=== PATIENT | male | born 1970 | race African-American/Black ===

== ENCOUNTER → 2019-08-09 | Outpatient (CLI) | payer MEDICAID ==
[~2019-08-09] MED LIST: ATORVASTATIN PO; LISINOPRIL PO; METF500T17 PO
[2019-08-09 16:01] LABS: BASOPHILS # (AUTO) 0.05 x10^3/uL (0-0.1); BASOPHILS % (AUTO) 0 % (0-1); EOSINOPHILS # (AUTO) 0.39 x10^3/uL (0-0.4); EOSINOPHILS % (AUTO) 4 % (1-7); LYMPHOCYTES # (AUTO) 2.85 x10^3/uL (1-3.4); LYMPHOCYTES % (AUTO) 26 % (22-44); MD NO; MEAN CORPUSCULAR HEMOGLOBIN 29.7 pg (27.5-34.5); MEAN CORPUSCULAR HGB CONC 33.4 g/dL (33.2-36.2); MEAN CORPUSCULAR VOLUME 88.8 fL (81-97); MEAN PLATELET VOLUME 7.8 fL (7.4-10.4); MONOCYTES # (AUTO) 0.93 x10^3/uL (0.2-0.8); MONOCYTES % (AUTO) 9 % (2-9); NEUTROPHILS # (AUTO) 6.73 x10^3/uL (1.8-6.8); NEUTROPHILS % (AUTO) 62 % (42-75); PLATELET COUNT 315 x10^3/uL (130-400); RED BLOOD COUNT 5.33 x10^6/uL (4.38-5.82); RED CELL DISTRIBUTION WIDTH 14.1 % (9.4-14.8)
[2019-08-09 16:11] LABS: ALANINE AMINOTRANSFERASE 34 U/L (12-78); ALBUMIN 3.4 g/dL (3.4-5.0); ANION GAP 6 mmol/L (5-15); CHLORIDE 106 mmol/L (98-107); CREATININE 1.02 mg/dL (0.7-1.3)
[2019-08-09 16:14] LABS: ALKALINE PHOSPHATASE 130 U/L (45-117); BILIRUBIN,TOTAL 0.2 mg/dL (0.2-1.0); TOTAL PROTEIN 8.1 g/dL (6.4-8.2)
[2019-08-09 16:25] LABS: INTERNATIONAL NORMALIZED RATIO 0.96 (0.93-1.1); PROTHROMBIN TIME 10.2 Seconds (9.6-11.5)
== END | disposition home or self-care (01) ==
LOC: STAR 14:48
PROVIDERS: ATTEND Orthopaedic Surgery
DX: Z01.818 Encounter for other preprocedural examination (principal); M17.11 Unilateral primary osteoarthritis, right knee; R94.31 Abnormal electrocardiogram [ECG] [EKG]
CPT/HCPCS: 36415; 80053; 83036; 85025; 85610; 85730; 87081; 87806; 93005; G0475

== ENCOUNTER 2019-08-13 10:29 | Observation (INO) | payer MEDICAID ==
[~2019-08-13] VITALS: Ht 190.5 cm; Wt 126.1 kg
[2019-08-13 10:59] VITALS: BP 119/83
[2019-08-13] MEDS ORDERED: GABAPENTIN 300 MG CAPSULE PO ONE (11:00)
[2019-08-13] MEDS ORDERED: ACETAMINOPHEN 500 MG TABLET PO ONE (11:00)
[2019-08-13] MEDS ORDERED: CHLORHEXIDINE 15 ML UDC MM ONE (11:00)
[2019-08-13] MEDS: LACTATED RINGERS 1,000 ML IV SCH ×2 (11:37→21:28)
[2019-08-13] MEDS ORDERED: FENTANYL PF 250 MCG/5ML ONE (13:37)
[2019-08-13] MEDS ORDERED: TRANEXAMIC ACID 100 MG/ML, 10ML ONE (13:48)
[2019-08-13] MEDS ORDERED: KETOROLAC 60 MG/2 ML ONE (13:48)
[2019-08-13] MEDS ORDERED: EPINEPHRINE 1 MG/ML, 1ML ONE (13:48)
[2019-08-13] MEDS ORDERED: ROPIvacaine/PF 0.2%, 20 ML ONE (13:48)
[2019-08-13] MEDS: POTASSIUM CHLORIDE 20 MEQ in D5%-0.45% NACL 1,000 ML IV SCH (13:54)
[2019-08-13] MEDS ORDERED: PROMETHAZINE 12.5 MG SUPP PR PRN ×2 (14:00→15:00)
[2019-08-13] MEDS ORDERED: HYDROmorphone 1 MG/ML, 1ML INJ IVPush PRN ×2 (14:00→15:00)
[2019-08-13] MEDS ORDERED: ONDANSETRON 2MG/ML, 2ML IVPush PRN ×2 (14:00→15:00)
[2019-08-13] MEDS ORDERED: ACETAMINOPHEN 650 MG/20.3 ML UDC PO PRN (14:00)
[2019-08-13] MEDS ORDERED: OXYcodone IR 5MG TABLET PO PRN (14:00)
[2019-08-13] MEDS ORDERED: PSYLLIUM PACKET PO PRN (14:00)
[2019-08-13] MEDS ORDERED: ALUMINUM/MAG/SIMETHICONE 30 ML UDC PO PRN (14:00)
[2019-08-13] MEDS ORDERED: SENNA/DOCUSATE TABLET PO PRN (14:00)
[2019-08-13] MEDS ORDERED: DEXAMETHASONE 4 MG/ML, 1ML IVPush SCH (14:00)
[2019-08-13] MEDS ORDERED: MAGNESIUM HYDROXIDE 8%, 30ML UDC PO PRN (14:00)
[2019-08-13] MEDS ORDERED: ONDANSETRON 4 MG TABLET PO PRN (14:00)
[2019-08-13] MEDS ORDERED: POLYETHYLENE GLYCOL 17 GM PACKET PO PRN (14:00)
[2019-08-13] MEDS ORDERED: TRANEXAMIC ACID 1,000 MG in SODIUM CHLORIDE 0.9% 100 ML IVPB ONE ×2 (14:00→16:30)
[2019-08-13] MEDS ORDERED: LIDOCAINE-MPF 2% ,5ML ONE (14:09)
[2019-08-13] MEDS ORDERED: PROPOFOL 10 MG/ML, 20ML ONE (14:39)
[2019-08-13] MEDS ORDERED: CEFAZOLIN 1,000 MG ONE (14:39)
[2019-08-13] MEDS ORDERED: DEXAMETHASONE 4 MG/ML, 1ML ONE (14:39)
[2019-08-13] MEDS ORDERED: ONDANSETRON 2MG/ML, 2ML ONE ×2 (14:39→16:04)
[2019-08-13] MEDS ORDERED: OXYcodone 5 MG/5 ML ORAL.SOL UDC PO PRN (15:00)
[2019-08-13] MEDS ORDERED: FENTANYL PF 100 MCG/2ML ONE ×2 (15:53→16:22)
[2019-08-13] MEDS ORDERED: OXYcodone 5 MG/5 ML ORAL.SOL UDC ONE (15:53)
[2019-08-13] MEDS ORDERED: MEPERIDINE/PF 50 MG/ML ONE (15:58)
[2019-08-13] MEDS: FENTANYL PF 100 MCG/2ML IV PRN ×2 (16:01→16:12)
[2019-08-13] MEDS: MEPERIDINE/PF 25MG/0.5ML IVPush PRN ×2 (16:11→16:32)
[2019-08-13] MEDS ORDERED: HYDROmorphone 1 MG/ML, 1ML INJ ONE (16:22)
[2019-08-13 17:10] VITALS: BP 161/104
[2019-08-13 17:25] VITALS: BP 169/108
[2019-08-13] MEDS ORDERED: ASPI81TA45 PO (17:29)
[2019-08-13] MEDS ORDERED: ONDA4TAB7 PO (17:30)
[2019-08-13] MEDS ORDERED: DOCU-131 PO (17:30)
[2019-08-13] MEDS ORDERED: MELO7.5T31 PO (17:31)
[2019-08-13] MEDS ORDERED: TRAM50TA2 PO (17:32)
[2019-08-13] MEDS ORDERED: OXYC5TAB2 PO (17:34)
[2019-08-13] MEDS: LISINOPRIL 20 MG TABLET PO SCH ×2 (17:57→19:27)
[2019-08-13] MEDS ORDERED: LABETALOL 5MG/ML, 20ML IVPush PRN (18:30)
[2019-08-13] MEDS ORDERED: ATOR10TA9 PO (18:35)
[2019-08-13] MEDS ORDERED: LISI-170 PO (18:35)
[2019-08-13 19:22] VITALS: BP 158/101
[2019-08-13 19:57] VITALS: BP 155/96
[2019-08-13] MEDS: OXYcodone IR 5MG TABLET PO PRN (20:47)
[2019-08-13] MEDS ORDERED: ATORVASTATIN 10 MG TABLET PO SCH (21:00)
[2019-08-13] MEDS: DOCUSATE 100 MG CAPSULE PO SCH (21:00)
[2019-08-13] MEDS: ASPIRIN 81 MG TABLET EC PO SCH (21:46)
[2019-08-13] MEDS: KETOROLAC 30 MG/1 ML IV SCH (21:47)
[2019-08-13 22:20] LABS: AMPHETAMINE SCREEN, URINE Negative (Negative); BARBITURATE SCREEN, URINE Negative (Negative); BENZODIAZEPINE SCREEN, URINE Negative (Negative); CANNABINOID SCREEN, URINE Negative (Negative); COCAINE SCREEN, URINE Negative (Negative); METHADONE SCREEN, URINE Negative (Negative); OPIATE SCREEN, URINE Positive (Negative)
[2019-08-13] MEDS: CEFAZOLIN PMX 1GM/50ML 50 ML IVPB SCH (22:38)
[2019-08-13 23:44] VITALS: BP 115/80
[2019-08-14] MEDS: POTASSIUM CHLORIDE 20 MEQ in D5%-0.45% NACL 1,000 ML IV SCH
[2019-08-14] MEDS: OXYcodone IR 5MG TABLET PO PRN ×2 (02:30→09:13)
[2019-08-14 02:35] VITALS: BP 124/82
[2019-08-14] MEDS: KETOROLAC 30 MG/1 ML IV SCH (06:29)
[2019-08-14] MEDS: CEFAZOLIN PMX 1GM/50ML 50 ML IVPB SCH (06:30)
[2019-08-14 07:11] VITALS: BP 104/63
[2019-08-14] MEDS: TAMSULOSIN 0.4 MG CAP.ER.24H PO SCH ×2 (09:00→09:13)
[2019-08-14] MEDS: DOCUSATE 100 MG CAPSULE PO SCH ×2 (09:00→09:14)
[2019-08-14] MEDS: ASPIRIN 81 MG TABLET EC PO SCH (09:13)
[2019-08-14] MEDS: LISINOPRIL 20 MG TABLET PO SCH ×2 (09:14→09:26)
[2019-08-14 11:01] VITALS: BP_SYST 100; BP_SYST 110; BP_DIAS 64
[2019-08-14] MEDS ORDERED: metFORMIN 500 MG TABLET PO SCH (17:24)
== END 2019-08-14 11:14 | disposition home or self-care (01) ==
LOC: OUT 10:29 → ORIP 13:54 → 4NE 17:10
PROVIDERS: ADMIT Orthopaedic Surgery; ATTEND Orthopaedic Surgery
DX: M17.11 Unilateral primary osteoarthritis, right knee (principal); M21.00 Valgus deformity, not elsewhere classified, unspecified site; M71.20 Synovial cyst of popliteal space [Baker], unspecified knee; E11.9 Type 2 diabetes mellitus without complications; I10 Essential (primary) hypertension; E78.5 Hyperlipidemia, unspecified; G47.30 Sleep apnea, unspecified; Z79.899 Other long term (current) drug therapy; Z79.84 Long term (current) use of oral hypoglycemic drugs
CPT/HCPCS: 27447; 36415; 73560; 80307; 82962; 85014; 85018; 96365; 96366; 96375; 96376; 97110; 97161; C1713; C1776; G0378; J0171; J0690; J1100; J1170; J1885; J2175; J2405; J2704; J2795; J3010; J3490; J7120

== ENCOUNTER 2019-08-14 16:33 | Emergency (ER) | payer MEDICAID ==
[~2019-08-14] VITALS: Ht 185.4 cm; Wt 126.0 kg
[~2019-08-14 16:33] MED LIST changes: +ASPI81TA45 PO; +ATOR10TA9 PO; +DOCU-131 PO; +LISI-170 PO; +MELO7.5T31 PO; +ONDA4TAB7 PO; +OXYC5TAB2 PO; +TRAM50TA2 PO
[2019-08-14 16:34] VITALS: BP 140/83
--- NOTE | 2019-08-14 17:43 | NUR ---
FIRST CONTACT WITH PT. Acosta FROM HERE TODAY AFTER RIGHT TOTAL KNEE REPLACEMENT SURGERY, ISSUE GETTING PAIN MEDICATION FILLED. PT C/O R KNEE PAIN. PT'S AOX4. RESPS EVEN AND UNLABORED.
[2019-08-14] MEDS ORDERED: HYDROmorphone 1 MG/ML, 1ML INJ ONE (17:57)
[2019-08-14] MEDS ORDERED: HYDROmorphone 1 MG/ML, 1ML INJ IM ONE (18:00)
--- NOTE | 2019-08-14 18:12 | NUR ---
PT MEDICATED PER EMAR. PT TOLERATED WELL.
--- NOTE | 2019-08-14 18:52 | NUR ---
REPORT GIVEN TO YASSINE ALICIA.
== END 2019-08-14 19:13 | disposition home or self-care (01) ==
LOC: ED 19:12
DX: G89.11 Acute pain due to trauma (principal); M25.561 Pain in right knee; Z76.0 Encounter for issue of repeat prescription; Z96.651 Presence of right artificial knee joint
CPT/HCPCS: 96372; 99283; J1170